=== PATIENT | male | born 1990 | race African-American/Black ===

== ENCOUNTER 2016-12-22 07:04 | Emergency (ER) | payer OTHER ==
[~2016-12-22 07:04] MED LIST: BACTRIM DS TABL1 TA1 PO; NORCO 5/325 TAB1 TAB PO
== END 2017-01-09 11:45 | disposition home or self-care (01) ==
LOC: CED 07:04
DX: M79.602 Pain in left arm (principal); F17.200 Nicotine dependence, unspecified, uncomplicated; Z76.5 Malingerer [conscious simulation]
CPT/HCPCS: 99283; J1885